=== PATIENT | female | born 1950 | race Caucasian/White ===

== ENCOUNTER 2016-08-11 06:11 | Day surgery (SDC) | payer OTHER ==
--- NOTE | ~2016-08-11 | EGD ---
EGD REPORT [facility] [address] [id number] NAME: OWEN BLAKELY : [birth year] STATUS : REG [facility]#: [id number] AGE: 66 ADM/REG DATE : 08/11/16 MR#: [id number] REPORT SERV DATE: 08/11/16 DICTATED BY: CHATO MALONEY DATE: 08/11/16 REPORT STATUS : Draft TRANSCRIBED BY: [facility] DATE: 08/11/16 [facility] Patient Name: Owen Blakely Date of : 1950 Attending MD: CHATO MALONEY MD Procedure Date No Time: 08/11/2016 Procedure: Colonoscopy Indications: High risk colon cancer surveillance: Personal history of Serrated Polyposis Syndrome. Patient Profile: Informed consent was obtained from the patient by me prior to the procedure. Risks, benefits, and alternatives were discussed including the risk of bleeding, perforation, infection, reaction to medicine, missed lesion, and cardiopulmonary complications. Referring MD: FRANCO CLARK Medicines: Monitored Anesthesia Care Complications: No immediate complications. Procedure: Pre-Anesthesia Assessment: - ASA Grade Assessment: III - A patient with severe systemic disease. After I obtained informed consent, the scope was passed under direct vision. Throughout the procedure, the patient's blood pressure, pulse, and oxygen saturations were monitored continuously. The PCF [id number] was introduced through the anus and advanced to the cecum, identified by appendiceal orifice and ileocecal valve. The colonoscope was slowly withdrawn with careful examination all mucosal surfaces including specific attention around flexures and tip deflection behind folds; retroflexion performed in rectum. The colonoscopy was performed without difficulty. The patient tolerated the procedure well. The quality of the bowel preparation was adequate. The ileocecal valve, appendiceal orifice and rectum were photographed. Findings: A sessile polyp was found in the sigmoid colon. The polyp was 5 mm in size. The polyp was removed with a cold biopsy forceps. Resection and retrieval were complete. A flat polyp was found in the rectum. The polyp was 3 mm in size. The polyp was removed with a cold biopsy forceps. Resection and retrieval were complete. Multiple medium-mouthed diverticula were found in the sigmoid colon, in the descending colon and in the cecum. The transverse colon (evidence of a previous tattoo) appeared normal. EGD REPORT [address] [address] NAME: OWEN BLAKELY : [birth year] STATUS : REG [facility]#: [id number] AGE: 66 ADM/REG DATE : 08/11/16 MR#: [id number] REPORT SERV DATE: 08/11/16 DICTATED BY: CHATO MALONEY DATE: 08/11/16 REPORT STATUS : Draft TRANSCRIBED BY: [employer] DATE: 08/11/16 Impression: - One 5 mm polyp in the sigmoid colon. Resected and retrieved. - One 3 mm polyp in the rectum. Resected and retrieved. - Diverticulosis in the sigmoid colon, in the descending colon and in the cecum. - The transverse colon is normal. Recommendation: - Patient has a contact number available for emergencies. The signs and symptoms of potential delayed complications were discussed with the patient. Return to normal activities tomorrow. Written discharge instructions were provided to the patient. - Regular diet. - Continue present medications. - Await pathology results. - Repeat colonoscopy in 1 year for surveillance. Procedure Code(s): --- Professional --- 73349, Colonoscopy, flexible, proximal to splenic flexure; with biopsy, single or multiple Diagnosis Code(s): --- Professional --- K62.1, Rectal polyp D12.5, Benign neoplasm of sigmoid colon K57.30, Diverticulosis of large intestine without perforation or abscess without bleeding Z86.010, Personal history of colonic polyps CPT copyright 2013 [employer]. All rights reserved. The codes documented in this report are preliminary and upon train operations manager review may be revised to meet current compliance requirements. CHATO MALONEY MD 08/11/2016 9:05 AM This report has been signed electronically. Number of Addenda: 0 Note Initiated On: 08/11/2016 7:46 AM Scope Withdrawal Time 0 hours 15 minutes 26 seconds [address] [id number]
[~2016-08-11 06:11] MED LIST: ASAB PO; BETA BLOCKER PO; CLARIT10 PO; COREG3 PO; FLONASE NAS; GARLIC OTC; GLUCPH PO; KRILLOIL; MAX25 PO; NORV5 PO; VITC500 PO; ZOCOR10 PO
== END 2016-08-11 23:59 | disposition home or self-care (01) ==
LOC: DMU 06:11
PROVIDERS: Internal Medicine Gastroenterology
PROC: 0DBP8ZZ Excision of Rectum, Via Natural or Artificial Opening Endoscopic (ICD-10-PCS; 2016-08-11)
PROC: 0DBN8ZZ Excision of Sigmoid Colon, Via Natural or Artificial Opening Endoscopic (ICD-10-PCS; principal; 2016-08-11 07:30)
DX: Z12.11 Encounter for screening for malignant neoplasm of colon (principal); K62.1 Rectal polyp; K63.5 Polyp of colon; I10 Essential (primary) hypertension; E11.9 Type 2 diabetes mellitus without complications; E78.00 Pure hypercholesterolemia, unspecified; R56.9 Unspecified convulsions; M13.842 Other specified arthritis, left hand; M13.862 Other specified arthritis, left knee; M13.841 Other specified arthritis, right hand; M13.861 Other specified arthritis, right knee; K57.30 Diverticulosis of large intestine without perforation or abscess without bleeding; Z86.010 Personal history of colon polyps; Z90.49 Acquired absence of other specified parts of digestive tract; Z90.710 Acquired absence of both cervix and uterus; Z98.41 Cataract extraction status, right eye; Z98.42 Cataract extraction status, left eye; Z96.1 Presence of intraocular lens; Z98.890 Other specified postprocedural states; Z87.891 Personal history of nicotine dependence; Z88.8 Allergy status to other drugs, medicaments and biological substances; Z79.899 Other long term (current) drug therapy; Z79.82 Long term (current) use of aspirin; Z79.84 Long term (current) use of oral hypoglycemic drugs
CPT/HCPCS: 82962; 88305